=== PATIENT | female | born 1995 | race African-American/Black ===

== ENCOUNTER 2017-07-29 04:06 | Inpatient (IN) | payer OTHER ==
[2017-07-29 04:40] VITALS: BMI 23.8
[2017-07-29] MEDS: Lactated Ringer's 1,000 ML IV SCH ×3 (05:00→21:30)
[2017-07-29] MEDS ORDERED: Fentanyl 4 mcg/Marc 0.1% Cadd 100 ML ONE (05:12)
[2017-07-29 05:24] LABS: Hematocrit 37.2 % (36.0-47.0); Mean Platelet Volume 8.2 fL (7.4-10.4); Red Blood Cell (RBC) Count 3.81 mill/uL (4.00-5.20)
[2017-07-29] MEDS ORDERED: LR / Pitocin 40 units/1000 ml 1,000 ML IV PRN (06:06)
[2017-07-29] MEDS ORDERED: Ondansetron HCl/PF 4 MG/2 ML Vial IVP PRN ×2 (06:06→06:08)
[2017-07-29] MEDS ORDERED: Ibuprofen 800 MG TAB PO PRN (06:06)
[2017-07-29] MEDS ORDERED: Lidocaine 1% (PF) 30 ML VIAL SC PRN (06:06)
[2017-07-29] MEDS ORDERED: Acetaminophen 500 MG TAB PO PRN (06:06)
[2017-07-29] MEDS ORDERED: Promethazine HCl 25 MG/ML VIAL IM PRN ×2 (06:06→06:08)
[2017-07-29] MEDS ORDERED: Lactated Ringer's 500 ML IV PRN (06:08)
[2017-07-29] MEDS ORDERED: diphenhydrAMINE 50 MG/ML VIAL IVP PRN (06:08)
[2017-07-29] MEDS ORDERED: Eucerin (Mineral Oil/Petrolatum,White) 30 gm Jar TOP PRN (06:08)
[2017-07-29] MEDS ORDERED: ePHEDrine/0.9% NaCl/PF SYRINGE 50 mg/10 ml SLOW IVP PRN (06:08)
[2017-07-29] MEDS ORDERED: Naloxone HCl 0.4 mg/ml Vial IVP PRN ×2 (06:08)
[2017-07-29] MEDS ORDERED: Acetaminophen 325 MG TAB PO PRN ×2 (06:08→07:35)
--- NOTE | 2017-07-29 06:11 | PDOC.LDHP ---
Labor and Delivery H&P Chief complaint: contractions, abdominal pain HPI: 22 yo @ 37.2 by LMP and first tri US presents for painful contractions which started at approximately 0100 this am. Denies loss of fluid. Denies headache, vision changes, cp, sob, abdominal pain outside of contractions and denies increased swelling outside baseline. Current gestational age (weeks): 37 Due date: 08/17/17 Dating criteria: last menstrual period, first trimester ultrasound Grav: 2 Para: 1 OB History Details: Anemia of Current complications: other (anemia of ) Abnormal US findings: No Current medications: pre-danis vitamins, iron Previous surgical history: none Social history: none - Physical Exam Vital signs reviewed and normal: yes General: NAD, breathing through contractions Heart: RRR Lungs: nonlabored breathing Abdomen: NTTP Extremeties: no edema FHT: category 1, variability present [place] contractions every: 2-3min - Vaginal Exam cm dilated: 6 Effacement: 90% Station: -1 - OB Labs Blood type: O RH: positive Antibody Screen: negative HIV: negative RPR: negative HEPSAg: negative 1 hour GCT: unknown 3 hour GTT: unknown GBS: negative Rubella: immune - Assessment L&D Assessment: term patient in labor - Plan Plan: admit to L&D, anesthesia consult for pain management -: Note for pt exam @ 0500 TIUP in active labor, admit to L&D cat 1 strip BL 140s, + accels, no decels, contractions q2-3min pt reports painful contractions and is requesting epidural, anesthesia consulted 6, 90%, -1 last check per nurse continue cervical checks q2hr npo w/ ice chips LR @ 125mLs/hr consider AROM if no SROM by next check presentation vertex, post placenta by us <Clayton Alonzo - Last Filed: 07/29/17 06:09> <Keely Frost - Last Filed: 07/29/17 06:50> Allergies/Adverse Reactions: Allergies Allergy/AdvReac Type Severity Reaction Status Date / Time No Known Allergies Allergy Unverified 07/29/17 04:34 Attending Addendum - Attending Addendum I personally evaluated the patient and discussed the management with Dr. Alonzo I agree with the History, Examination, Assessment and Plan documented above with any addition or exceptions noted below. 22 yo female at 37.2 wks by LMP/16.0 wk sono here for active labor. 1. sIUP: IOB labs reviewed. Anatomy reviewed. 3T negative. Flu/Tdap given. GBS negative. Would like epidural for pain control. Vertex. Anterior placenta by anatomy sono. 2. Iron def anemia: Has been on iron supplementation. H/H WNL. Proceed with expectant management. Epidural upon request. Augment if needed. [place] <Keely Frost - Last Filed: 07/29/17 06:50>
[2017-07-29] MEDS ORDERED: Fentanyl 4mcg/Marcaine 0.1% Cassette 100 ML EPIDURAL SCH (06:15)
[2017-07-29] MEDS ORDERED: Communication Order-Pharmacy FS SCH (06:15)
--- NOTE | 2017-07-29 06:41 | PDOC.LDPN ---
Labor & Delivery Progress Note - Subjective Subjective: comfortable, no concerns - Objective Vital signs reviewed and normal: yes General: NAD, breathing through contractions Uterine fundus: non tender Dilation: 9 Effacement: 90% Station: 0 FHT: category 1, early decelerations, variability present [place] contractions every: 2-3min - Assessment (1) Term Code(s): Z34.80 - ENCOUNTER FOR SUPRVSN OF NORMAL , UNSP TRIMESTER Current Visit: Yes Status: Acute Plan: continue plan of care -: epidural in place, significant change since last cervical check membranes still intact, will AROM continue plan of care <Clayton Alonzo - Last Filed: 07/29/17 06:39> Attending Addendum - Attending Addendum I personally evaluated the patient and discussed the management with Dr. Alozno I agree with the History, Examination, Assessment and Plan documented above with any addition or exceptions noted below. 22 yo female at 37.2 wks by LMP/16.0 wk sono here for active labor. 1. sIUP: IOB labs reviewed. Anatomy reviewed. 3T negative. Flu/Tdap given. GBS negative. Now has epidural for pain control. Vertex. Anterior placenta by anatomy sono. FHT cat 1. Now 9 cm. Discussed AROM with patient. R/B/A discussed. Will proceed with AROM. 2. Iron def anemia: Has been on iron supplementation. H/H WNL. Proceed with expectant management. Epidural inplace. AROM clear. ABrayMD <Keely Frost - Last Filed: 07/29/17 06:58>
[2017-07-29] MEDS ORDERED: Bisacodyl 10 MG SUPP PR PRN (07:31)
[2017-07-29] MEDS ORDERED: Lanolin Ointment 7 GM TUBE TOP PRN (07:31)
[2017-07-29] MEDS ORDERED: Adacel (T-DAP) 0.5 ML VIAL IM ONE (07:31)
--- NOTE | 2017-07-29 07:40 | PDOC.OPDEL ---
OB Operative/Delivery Note Delivery Dr/Surgeon: Clinton Attending:Santosh Assist: Renetta Pre-Delivery Diagnosis: active labor Procedure/Post Delivery Dx: spontaneous vaginal delivery Weeks gestation: 37 Anesthesia: epidural - Findings A Sex: female - 1 min: 9 - 5 min: 9 - Additional Findings/Plan Placenta delivered: spontaneous Repaired Obstetrical Laceration: none Estimated blood loss: 200 Compilations/Other Findings: @ 0717 apgars 9,9. EBL 200, Placenta via pelayo. 3 vessel cord. Placenta intact. Small peineal skid, hemostatic. Post delivery plan: routine recovery <Clayton Alonzo - Last Filed: 07/29/17 07:38> Attending Addendum - Attending Addendum I was present for the delivery and participated. 22 yo now female s/p on 07/29/17 at 0717. Female delivered in OA position over an intact perineum. No nuchal. APGARs 9/9. No lacerations. Pitocin started for active management of 3rd stage. Infant straight to skin to skin. Delayed cord clamping. EBL 200 mL. Placenta delivered spontaneously, intact. Discarded. No complications. Routine pp and nursery. ABrayMD <Keely Frost - Last Filed: 07/29/17 10:13>
[2017-07-29] MEDS ORDERED: LR / Pitocin 40 units/1000 ml 1,000 ML IV SCH (07:45)
[2017-07-29] MEDS ORDERED: Ferrous Sulfate 325 MG TAB PO SCH (08:00)
[2017-07-29] MEDS ORDERED: Docusate 100 MG CAP PO SCH (09:00)
[2017-07-29] MEDS: Ascorbic Acid 500 mg Chewable Tablet PO SCH ×2 (10:49→19:06)
[2017-07-29] MEDS: Prenatal Vitamin 1 TAB PO SCH (10:49)
[2017-07-29] MEDS: Docusate 100 MG CAP PO PRN (10:50)
[2017-07-29] MEDS ORDERED: Bupivacaine 0.25% HCL 30 ML VIAL ONE (11:26)
[2017-07-29] MEDS: Ibuprofen 800 MG TAB PO SCH ×2 (12:04→21:30)
[2017-07-29] MEDS ORDERED: traMADol HCl 50 MG TAB PO PRN (16:12)
[2017-07-30] MEDS: Ibuprofen 800 MG TAB PO SCH ×2 (05:51→13:24)
[2017-07-30 07:57] VITALS: BP 99/56; TEMP 98.7
[2017-07-30] MEDS: Lactated Ringer's 1,000 ML IV SCH ×2 (08:22→13:24)
[2017-07-30] MEDS: Prenatal Vitamin 1 TAB PO SCH (08:28)
[2017-07-30] MEDS: Docusate 100 MG CAP PO PRN (08:28)
[2017-07-30] MEDS: Ascorbic Acid 500 mg Chewable Tablet PO SCH (13:24)
--- NOTE | 2017-07-30 13:53 | PDOC.PP ---
Post Progress Note Post Day #: 1 Subjective: Feeling well. Ambulating, eating/drinking normally and no concerns. Plans to have infant follow up at [facility]. PO intake tolerated: yes Flatus: yes Ambulation: yes Vital Signs (12 hours) Temp Pulse Resp BP Pulse Ox 07/30/17 07:57 98.7 F 79 18 99/56 L 98 07/30/17 07:30 98.7 F 79 18 07/30/17 05:11 98.5 F 70 18 129/65 07/30/17 04:00 96.8 F L 77 18 Weight Weight 58.967 kg - Physical Examination General: NAD Cardiovascular: no m/r/g, RRR Respiratory: clear to auscultation bilaterally, non-labored breathing Abdominal: + bowel sounds, lochia (minimal lochia rubra), no distention, appropriately TTP Fundus firm & at: below umbilicus Extremities: negative homans (B) Skin: no rash Neurological: no gross focal deficits Psychiatric: A&Ox3, normal affect Result Diagrams: 07/29/17 05:00 Additional Labs: Post Labs Blood Type O POSITIVE 07/29/17 05:00 Hep Bs Antigen Non-Reactive S/CO (NonReactive) 07/29/17 05:00 (1) Vaginal delivery Code(s): O80 - ENCOUNTER FOR FULL-TERM UNCOMPLICATED DELIVERY Status: Acute Comment: PPD#1 of 22yo -> s/p on 07/29/17 at 37.2wks. course as anticipated. No complications. Doing well currently without concerns. F/U with Dr. Jackson at [facility] within 2 wks of discharge. (2) Second degree perineal laceration during delivery, delivered Code(s): O70.1 - SECOND DEGREE PERINEAL LACERATION DURING DELIVERY Status: Acute Comment: well healed. no problems voiding or stooling. <Lo Guadalupe - Last Filed: 07/30/17 13:50> Vital Signs (12 hours) Temp Pulse Resp BP Pulse Ox 07/30/17 07:57 98.7 F 79 18 99/56 L 98 07/30/17 07:30 98.7 F 79 18 07/30/17 05:11 98.5 F 70 18 129/65 Weight Weight 58.967 kg Result Diagrams: 07/29/17 05:00 Additional Labs: Post Labs Blood Type O POSITIVE 07/29/17 05:00 Hep Bs Antigen Non-Reactive S/CO (NonReactive) 07/29/17 05:00 <Keely Frost - Last Filed: 07/30/17 16:22> Attending Addendum - Attending Addendum I personally evaluated the patient and discussed the management with Dr. Guadalupe I agree with the History, Examination, Assessment and Plan documented above with any addition or exceptions noted below. 22 yo female s/p . PPD#1. Doing well. No complications. Ambulating well. Voiding well. Lochia mild. Bottle feeding. Correction: NO 2nd DEGREE LACERATION! Contraception: Unsure at this time. will discuss with Dr. Jackson. Dispo: Ok for d/c to home today. ABrayMD <Keely Frost - Last Filed: 07/30/17 16:22>
== END 2017-07-30 15:24 | disposition home or self-care (01) | DRG 775 ==
LOC: L&D/OP 04:06 → L&D 05:29 → 3SW 09:54
PROVIDERS: ADMIT Student in an Organized Health Care Education/Training Program; ATTEND Student in an Organized Health Care Education/Training Program
PROC: 10E0XZZ Delivery of Products of Conception, External Approach (ICD-10-PCS; principal; 2017-07-29)
PROC: 10907ZC Drainage of Amniotic Fluid, Therapeutic from Products of Conception, Via Natural or Artificial Opening (ICD-10-PCS; 2017-07-29)
DX: O99.02 Anemia complicating childbirth (principal); D50.9 Iron deficiency anemia, unspecified; Z3A.37 37 weeks gestation of pregnancy; Z37.0 Single live birth
CPT/HCPCS: 85027; 86780; 87340; 87389; 90715; J2001; S0020

== ENCOUNTER 2018-03-29 12:00 | Emergency (ER) | payer OTHER, SELFPAY ==
[2018-03-29] MEDS ORDERED: Bicillin LA 2.4 MILL.UNITS/4 ML SYRINGE ONE (13:41)
[2018-03-29] MEDS ORDERED: Dexamethasone 4 mg/ml Vial ONE (13:42)
== END 2018-03-29 14:14 | disposition home or self-care (01) ==
LOC: ERS 12:00
DX: J02.0 Streptococcal pharyngitis (principal)
CPT/HCPCS: 87430; 96372; J0561; J1100

== ENCOUNTER 2018-10-03 23:22 | Emergency (ER) | payer OTHER, SELFPAY ==
[2018-10-03 23:56] LABS: Bilirubin Negative (Negative); Blood, Urine Large (Negative); Clarity TURBID (Clear); Glucose, Urine (Dipstick) Negative (Negative); Leukocyte Large (Negative); Nitrite Negative (Negative); Protein, Urine (Dipstick) 100 mg/dL (Neg-Trace); Specific Gravity, Urine 1.025 (1.002-1.036)
[2018-10-03 23:59] LABS: Bacteria/HPF 4+ HPF (None Seen); Hyaline Casts/LPF 7-10 HYALINE CAST LPF (0-3 Hyaline); Pathc Cast-AUWi Flag 2.19 (0-2.49); RBC/HPF GREATER THAN 50-TNTC HPF (0-3); Squamous Epithelial 0-3 HPF (0-3)
[2018-10-03 23:59] LABS: #Basophils 0.1 thou/uL (0.0-0.2); #Lymphocytes 1.8 thou/uL (1.20-3.40); #Monocytes 0.7 thou/uL (0.11-0.59); #Neutrophils 6.9 thou/uL (1.40-6.50); %Basophils 0.6 % (0.0-1.0); %Eosinophils 0.3 % (0.0-10.0); %Monocytes 7.4 % (0.0-10.0); %Neutrophils 72.8 % (42.0-75.0); Hemoglobin 13.6 g/dL (12.0-16.0); Mean Corpuscular HGB CONC 35.2 g/dL (32.0-36.0); Mean Corpuscular Hemoglobin 32.4 pg (27.0-31.0); Mean Corpuscular Volume 92.1 fL (78.0-98.0); Mean Platelet Volume 7.7 fL (7.4-10.4); Platelet Count 241 thou/uL (130-400); RBC Distribution Width 11.1 % (11.5-14.5); Red Blood Cell (RBC) Count 4.21 mill/uL (4.20-5.40); White Blood Cell (WBC) Count 9.4 thou/uL (4.8-10.8)
[2018-10-04 00:20] LABS: ALT (SGPT) 14 U/L (8-55); AST (SGOT) 17 U/L (5-34); Albumin 4.3 g/dL (3.5-5.0); Alkaline Phosphatase 50 U/L (40-150); Anion Gap 13 mmol/L (10-20); BUN (Urea Nitrogen) 9 mg/dL (7.0-18.7); Bilirubin, Total 0.3 mg/dL (0.2-1.2); Calc. Creatinine Clearance 0 mL/min (70-130); Calcium 9.5 mg/dL (7.8-10.44); Carbon Dioxide 21 mmol/L (22-29); Chloride 106 mmol/L (98-107); Estimated GFR-MDRD Greater than 90; Globulin 3.4 g/dL (2.4-3.5); Glucose 86 mg/dL (70-105); Potassium 3.4 mmol/L (3.5-5.1); Protein, Total 7.7 g/dL (6.0-8.3); Sodium 137 mmol/L (136-145)
== END 2018-10-04 00:15 | disposition home or self-care (01) ==
LOC: ERS 23:22
DX: O23.41 Unspecified infection of urinary tract in pregnancy, first trimester (principal); Z3A.10 10 weeks gestation of pregnancy
CPT/HCPCS: 36415; 80053; 81003; 81015; 84702; 85025; 86900; 86901; 87077; 87086; 87186; 99283

== ENCOUNTER 2019-04-17 05:15 | Inpatient (IN) | payer OTHER ==
[2019-04-17] MEDS ORDERED: NS / Oxytocin 40 units/1000ml 1,000 ML ONE (05:30)
[2019-04-17] MEDS ORDERED: Lidocaine 1% (PF) 30 ML VIAL ONE (05:30)
[2019-04-17] MEDS ORDERED: Promethazine HCl 25 MG/ML VIAL IM PRN (05:33)
[2019-04-17] MEDS ORDERED: Ibuprofen 800 MG TAB PO PRN (05:33)
[2019-04-17] MEDS ORDERED: Lidocaine 1% (PF) 30 ML VIAL SC PRN (05:33)
[2019-04-17] MEDS ORDERED: hydrALAZINE 20 MG/ML VIAL SLOW IVP PRN ×2 (05:33→06:15)
[2019-04-17] MEDS ORDERED: NS / Oxytocin 40 units/1000ml 1,000 ML IV PRN (05:33)
[2019-04-17] MEDS ORDERED: Ondansetron PF 4 MG/2 ML Vial IVP PRN ×2 (05:33→06:15)
--- NOTE | 2019-04-17 05:34 | PDOC.FPROB ---
FMR OB H&P: HPI - History of Present Illness Chief Complaint: contractions Indentification: 23-yo at 38.4 wga by LMP c/w 7.3 wk sono History of Present Illness: Patient arrived at 7-8 cm. She has been stephani. Yesterday she was checked in clinic and had membranes stripped. She reports stephani for past 35 min prior to arrival every 2 min. No LOF. No VB. +FM. She has history of poor maternal weight gain: 5 lb total during . She had much N/V in 1st trimester but this improved. Primary Care Physician: Dr. Guzmán FMR OB H&P: Current - Care : 3 Para: 2 Gestational age: 38.4 Due date: 04/27/19 Dating Criteria: LMP c/w 7.3 wk sono Total weight gain: 5 lbs. Course/Complications: Poor maternal weight gain 2/2 N/V - OB Labs Blood type: O RH: positive Antibody Screen: negative HIV: negative RPR: negative HepBsAg: negative Rubella: immune Quad screen: negative Urine drug screen: not done Gonorrhea: negative Chlamydia: negative Pap Smear: NILM 1 hour gtt: 132 A1c: 4.6 GBS: negative H&H: 10.9 - First Trimester Ultrasound First trimester: 7.3 week sono - Anatomy Survey Anatomy survey: No abnormalities FMR OB H&P: History - Past Medical History PMH: Poor maternal weight gain 2/2 N/V this - OB History OB History: 2 term . 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 - Social History Social History: Denies tobacco, alcohol, drug use. - Family History Family History: [place] FMR OB H&P: Medications - Current Home Medications: Medication Instructions Recorded Confirmed Type 25/Iron/Folate 6/Dha 1 cap PO DAILY 07/14/15 07/29/17 History [Vitamedmd One Rx Softgel] Allergies/Adverse Reactions: Allergies Allergy/AdvReac Type Severity Reaction Status Date / Time No Known Allergies Allergy Verified 04/17/19 06:13 FMR OB H&P: ROS - Review of Systems General: reports: other (unable to obtain due to imminent delivery) FMR OB H&P: Vital Signs - Maternal Vital signs: Stable. - Heart Tones Category: category 1 FMR OB H&P: Physical Exam - Physical Exam General: NAD, other (in labor, stephani.) FMR OB H&P: A/P - Problem List (1) Imminent delivery Current Visit: Yes Status: Acute (2) Nausea and vomiting during Current Visit: Yes Status: Acute Code(s): O21.9 - VOMITING OF , UNSPECIFIED (3) weight loss Current Visit: Yes Status: Acute (4) Term Current Visit: No Status: Acute Code(s): Z34.80 - ENCOUNTER FOR SUPRVSN OF NORMAL , UNSP TRIMESTER Disposition: 23 presents in active labor: 1. Term - Prepare for delivery 2. Imminent delivery 3. Nausea/vomiting in 4. Poor maternal weight gain Discussion: Date/Time: 04/17/19 2243 This H&P was discussed with Dr. Masterson and Dr. Guzmán who agree with the above documentation and plan. Signature: Jessica Menchaca MD PGY-1 Addendum - Attending - Attending Attestation Date/Time: 04/17/19 2725 I personally evaluated the patient and discussed the management with Dr. Menchaca. I agree with the History, Examination, Assessment and Plan documented above with any addition or exceptions noted below. ROS otherwise negative except as listed in HPI. PE: NAD, laying with daughter s/p precipitous delivery NCAT, pupils equal, no conj injection, patent nares, normal pinna, MMM RRR, no edema No wheezes or inc wob Uterus firm and below umbilicus, appropriately TTP Perineum with hemostatic and well approximated 1st degree and normal pp bleeding Ext wwp s cyanosis or edema Motor 5/5 throughout, SILT Mood and affect appropriate for current medical condition, AOx3 GBS neg. s/p precipitious delivery to viable female . See delivery note.
[2019-04-17 05:44] LABS: Hemoglobin 11.8 g/dL (12.0-16.0); Mean Corpuscular Hemoglobin 30.6 pg (27.0-31.0); Mean Corpuscular Volume 92.6 fL (78.0-98.0); Mean Platelet Volume 7.8 fL (7.4-10.4); Platelet Count 175 thou/uL (130-400); RBC Distribution Width 11.7 % (11.5-14.5); Red Blood Cell (RBC) Count 3.85 mill/uL (4.20-5.40); White Blood Cell (WBC) Count 9.8 thou/uL (4.8-10.8)
[2019-04-17] MEDS ORDERED: Lactated Ringer's 1,000 ML IV SCH (05:45)
[2019-04-17 06:01] VITALS: BMI 25.2
[2019-04-17] MEDS ORDERED: Milk Of Magnesia 30 ML UDCUP PO PRN (06:15)
[2019-04-17] MEDS ORDERED: Lanolin Ointment 7 GM TUBE TOP PRN (06:15)
[2019-04-17] MEDS ORDERED: NS / Oxytocin 40 units/1000ml 1,000 ML IV SCH (06:15)
[2019-04-17] MEDS ORDERED: diphenhydrAMINE 25 MG CAP PO PRN (06:15)
[2019-04-17] MEDS ORDERED: Preparation H Ointment 28 GM TUBE PR PRN (06:15)
[2019-04-17] MEDS ORDERED: Benzocaine-Menthol 82.5 ML CAN TOP PRN (06:15)
[2019-04-17] MEDS ORDERED: Bisacodyl 10 MG SUPP PR PRN (06:15)
[2019-04-17] MEDS ORDERED: Acetaminophen/Codeine 30-300mg Tablet PO SCH (06:15)
--- NOTE | 2019-04-17 06:18 | PDOC.OPDEL ---
Addendum entered and electronically signed by Jessica Menchaca MD 04/17/19 06 :30: SROM within 1 minute of delivery. Clear fluid. Original Note: OB Operative/Delivery Note Delivery Dr/Surgeon: Dr. Menchaca, Dr. Reyes, Dr. Kurt Masterson Pre-Delivery Diagnosis: active labor Procedure/Post Delivery Dx: spontaneous vaginal delivery Weeks gestation: 38 (38.4) Anesthesia: none - Findings New Baby Sex: female - Additional Findings/Plan Placenta delivered: spontaneous Repaired Obstetrical Laceration: 1st degree Compilations/Other Findings: Vaginal Delivery Operative Report Delivering Physician: Dr. Eric Garcia Attending: Dr. Kurt Masterson Procedure: Spontaneous Vaginal Delivery Anesthesia: none EBL: 100 ml Pre-op Diagnosis: 1. Term intrauterine in labor 2. Poor maternal weight gain 2/2 Nausea/vomiting Post-op Diagnosis: 1. Term intrauterine , delivered 2. same as above Indications: A 23 y/o female presents in active labor. Delivery Note: This is 23 yo F @ 38.4 wks who delivered a viable F at 0540 on 04/17/19. Following an uneventful antepartum course, a vigorous female was delivered imminently in the bed over a 1st degree lacerated perineum in the occipitoanterior position. Anterior Shoulder and then remainder of the body delivered. No nuchal cord. The head was held down and mouth and nares were bulb suctioned. Cord clamped after delayed cord clamping and cut and cord blood collected. Placenta delivered intact in the [place] presentation with a 3 vessel cord noted. Fundal massage was performed gently and the fundus was firm. The cervix and vagina were inspected and found to be free of lacerations. 1st degree perineal lac was hemostatic; no repair needed. went to mom for [id number]. Apgars were 9/9 at 1 & 5 minutes, respectively. Patient tolerated delivery well and went to after routine recovery/ care. Post delivery plan: routine recovery Addendum - Attending - Attending Attestation Date/Time: 04/17/19 0902 I was present for the entire delivery.
[2019-04-17 06:23] LABS: Syphilis Antibody Nonreactive (Nonreactive); Syphilis Antibody Index 0.06 S/CO (<1.00 Non-Reactive)
[2019-04-17 06:24] LABS: HBSAg Index 0.34 S/CO (0-0.99); Hep B Surf Ag Non-Reactive S/CO (NonReactive)
[2019-04-17] MEDS: Ibuprofen 800 MG TAB PO SCH ×3 (08:14→22:03)
[2019-04-17] MEDS: Ferrous Sulfate 325 MG TAB PO SCH ×2 (11:07→16:49)
[2019-04-17] MEDS: Docusate Calcium (SURFAK) 240 MG CAP PO SCH ×2 (11:22→22:03)
[2019-04-17] MEDS: Prenatal Vitamin 1 TAB PO SCH (11:22)
[2019-04-17] MEDS ORDERED: Sodium Chloride 0.9% 10 ML ONE (14:22)
[2019-04-18] MEDS: Ibuprofen 800 MG TAB PO SCH ×2 (05:38→13:25)
--- NOTE | 2019-04-18 06:57 | PDOC.PP ---
Post Progress Note Post Day #: 1 Subjective: Doing well. Minimal lochia. No abd pain. No concerns, read to go home PO intake tolerated: yes Flatus: yes Ambulation: yes Vital Signs (12 hours) Temp Pulse Resp BP Pulse Ox 04/18/19 03:47 98.6 F 66 16 102/51 L 98 04/18/19 00:38 97.9 F 59 L 18 103/58 L 98 04/17/19 22:03 98.3 F 61 18 103/59 L 98 Weight Weight 62.596 kg - Physical Examination General: NAD Cardiovascular: RRR Respiratory: non-labored breathing Abdominal: + bowel sounds, lochia, no distention Psychiatric: A&Ox3, normal affect Result Diagrams: 04/17/19 05:37 Additional Labs: Post Labs Blood Type O POSITIVE 04/17/19 05:37 Hep Bs Antigen Non-Reactive S/CO (NonReactive) 04/17/19 05:37 - Assessment/Plan Term , day 1 -no concerns at this time, mom doing well -discharge today pending baby bilirubin -plan for nexplanon placement for contraception d/c today f/u in 2 weeks Addendum - Attending - Attending Attestation Date/Time: 04/18/19 2321 I personally evaluated the patient and discussed the management with Dr. Guzmán. I agree with the History, Examination, Assessment and Plan documented above with any addition or exceptions noted below. Afeb. Lochia normal. Fundus firm. Stable for d/c if released.
[2019-04-18] MEDS: Ferrous Sulfate 325 MG TAB PO SCH (09:00)
[2019-04-18] MEDS ORDERED: Adacel (T-DAP) 0.5 ML SYRINGE IM ONE (09:00)
[2019-04-18] MEDS: Docusate Calcium (SURFAK) 240 MG CAP PO SCH (09:10)
[2019-04-18] MEDS: Prenatal Vitamin 1 TAB PO SCH (09:10)
[2019-04-18 11:41] VITALS: BP 127/72; TEMP 98.5
== END 2019-04-18 15:43 | disposition home or self-care (01) | DRG 807 ==
LOC: L&D/OP 05:15 → L&D 05:38 → 3SE 09:18
PROVIDERS: ADMIT Emergency Medicine; ATTEND Emergency Medicine
PROC: 10E0XZZ Delivery of Products of Conception, External Approach (ICD-10-PCS; principal; 2019-04-17)
PROC: 0HQ9XZZ Repair Perineum Skin, External Approach (ICD-10-PCS; 2019-04-17)
DX: O75.89 Other specified complications of labor and delivery (principal); Z37.0 Single live birth; R63.4 Abnormal weight loss; O70.0 First degree perineal laceration during delivery; Z3A.38 38 weeks gestation of pregnancy
CPT/HCPCS: 36415; 85027; 86780; 86850; 86900; 86901; 87340; 99285; J2001

== ENCOUNTER 2019-04-23 08:06 | Emergency (ER) | payer OTHER | END 2019-04-23 08:35 | disposition home or self-care (01) | LOC: ERS 08:06 | DX: L05.91 Pilonidal cyst without abscess (principal) | CPT/HCPCS: 99283 ==

== ENCOUNTER 2019-04-25 05:41 | Emergency (ER) | payer OTHER ==
[2019-04-25] MEDS ORDERED: Lidocaine 1% w/Epinephrine 1:100K 20 ML VIAL ONE (06:11)
== END 2019-04-25 06:37 | disposition home or self-care (01) ==
LOC: ERS 05:41
DX: L02.31 Cutaneous abscess of buttock (principal); Z79.891 Long term (current) use of opiate analgesic; Z79.1 Long term (current) use of non-steroidal anti-inflammatories (NSAID)
CPT/HCPCS: 10060; J2001

== ENCOUNTER 2020-06-30 04:05 | Inpatient (IN) | payer OTHER ==
[2020-06-30] MEDS ORDERED: Lidocaine 1% (PF) 30 ML VIAL SC PRN (04:38)
[2020-06-30] MEDS ORDERED: hydrALAZINE 20 MG/ML VIAL SLOW IVP PRN ×2 (04:38→07:45)
[2020-06-30] MEDS ORDERED: Butorphanol Tartrate 1 MG/ML VIAL SLOW IVP PRN (04:38)
--- NOTE | 2020-06-30 04:38 | PDOC.FPROB ---
FMR OB H&P: HPI - History of Present Illness Chief Complaint: contractions History of Present Illness: 24yo @ 37.4wks by 15.6wk eli presents with contractions. She says she felt more vaginal pressure yesterday and last night around midnight she started to have contractions. They started to increase in intensity and frequency, occurring every 2 minutes. When she got to the hospital and got into the bed, she ruptured. +FM. Denies VB. 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 - Surgical History Sx History: none - Social History Social History: no T/A/D - Family History Family History: none FMR OB H&P: Medications - Current Home Medications: Medication Instructions Recorded Confirmed Type 25/Iron/Folate 6/Dha 1 cap PO DAILY 07/14/15 04/18/19 History [Vitamedmd One Rx Softgel] Allergies/Adverse Reactions: Allergies Allergy/AdvReac Type Severity Reaction Status Date / Time No Known Allergies Allergy Verified 06/30/20 04:53 FMR OB H&P: ROS - Review of Systems General: denies: fever/chills, weight/appetite/sleep changes Eyes: denies: vision changes, scotomas ENT: denies: nasal congestion, rhinorrhea Cardiovascular: denies: chest pain, palpitation, edema Respiratory: denies: cough, congestion Gastrointestinal: reports: abdominal pain. denies: nausea, vomiting, diarrhea Genitourinary (Female): reports: contractions, vaginal pressure. denies: vaginal discharge, vaginal bleeding Musculoskeletal: denies: pain, tenderness Neurologic: denies: syncope, headache Integumentary: denies: itching, rash Endocrine: denies: polydipsia, polyuria Hematologic/Lymphatic: denies: prolonged or excessive bleeding FMR OB H&P: Vital Signs - Heart Tones Baseline: 140 Variability: moderate Acceleration: present Deceleration: absent Category: category 1 FMR OB H&P: Physical Exam - Physical Exam General: NAD, awake, alert and oriented HEENT: normocephalic and atraumatic, grossly normal vision, grossly normal hearing Neck: supple, FROM Heart: RRR, normal S1/S2, no edema General: CTAB, no respiratory distress Abdomen: soft, gravid Musculoskeletal: normal gait and station, no atrophy Neurological: no focal deficit Skin: no rash, no jaundice Lymphatic: no unusual bruising or bleeding Psychiatric: intact recent and remote memory, normal mood and affect - Pelvic Exam Vulva: normal hair distribution, no blood SVE: /-1 FMR OB H&P: A/P Discussion: Date/Time: 06/30/20 0438 #sIUP -in active labor, expectant management of deliver, does not desire epidural -SVE: /-1 -FHT: cat 1 140/mod eren/+accel, no decel -ctx q2-4min #hx of chlamydia -s/p treatment, TAZ negative This H&P was discussed with Dr. Vera and Dr. Dash who agree with the above documentation and plan.
[2020-06-30] MEDS ORDERED: Lactated Ringer's 1,000 ML IV SCH (04:45)
[2020-06-30 04:52] VITALS: BMI 26.3
[2020-06-30 05:12] LABS: Hemoglobin 12.7 g/dL (12.0-16.0); Mean Corpuscular HGB CONC 33.3 g/dL (32.0-36.0); Mean Corpuscular Volume 95.9 fL (78.0-98.0); Mean Platelet Volume 8.4 fL (7.4-10.4); Platelet Count 161 thou/uL (130-400); Red Blood Cell (RBC) Count 3.96 mill/uL (4.20-5.40); White Blood Cell (WBC) Count 6.6 thou/uL (4.8-10.8)
[2020-06-30 05:44] LABS: Syphilis Antibody Nonreactive (Nonreactive); Syphilis Antibody Index 0.06 S/CO (<1.00 Non-Reactive)
[2020-06-30 05:45] LABS: HBSAg Index 0.25 S/CO (0-0.99); Hep B Surf Ag Non-Reactive S/CO (NonReactive)
[2020-06-30] MEDS: NS / Oxytocin 40 units/1000ml 1,000 ML IV PRN ×2 (07:01→07:42)
[2020-06-30] MEDS ORDERED: NS / Oxytocin 40 units/1000ml 1,000 ML IV SCH (07:45)
[2020-06-30] MEDS ORDERED: Ondansetron PF 4 MG/2 ML Vial IVP PRN (07:45)
[2020-06-30] MEDS ORDERED: Milk Of Magnesia 30 ML UDCUP PO PRN ×2 (07:45→10:14)
[2020-06-30] MEDS ORDERED: Bisacodyl 10 MG SUPP PR PRN ×2 (07:45→10:14)
[2020-06-30] MEDS ORDERED: Preparation H Ointment 28 GM TUBE PR PRN (07:45)
[2020-06-30] MEDS ORDERED: Adacel (T-DAP) 0.5 ML SYRINGE IM ONE (07:45)
--- NOTE | 2020-06-30 07:56 | PDOC.OPDEL ---
OB Operative/Delivery Note Delivery Dr/Surgeon: Dr. Freya Lee Assist: Dr. Dash attending Pre-Delivery Diagnosis: active labor Procedure/Post Delivery Dx: spontaneous vaginal delivery Weeks gestation: 37 (37.4) Anesthesia: local - Additional Findings/Plan Placenta delivered: spontaneous Repaired Obstetrical Laceration: none Estimated blood loss: 52 cc Compilations/Other Findings: Delivering Physician Dr. Freya Lee Attending: Dr. Dash Procedure: Spontaneous Vaginal Delivery Anesthesia: Local for Repair EBL: 52 ml Pre-op Diagnosis: 1. Term intrauterine in labor 2. Hx of labor Post-op Diagnosis: 1. Term intrauterine , delivered 2. same as above Indications: A 24y/o female presents in active labor Delivery Note: This is 24yo F @ 37.4 wks who delivered a viable M infant at 0707. Following an uneventful antepartum course, a vigorous M was delivered over an intact perineum in the occipitoanterior position. Anterior Shoulder and then remainder of the body delivered. Nuchal cord was reduced then baby was delivered. The head was held down and mouth and nares were bulb suctioned. Delayed cord clamping performed and cut and cord blood collected. Placenta delivered intact with a 3 vessel cord noted. Fundal massage was performed and the fundus was firm. The cervix and vagina were inspected and found to be free of lacerations. Infant went to nursery in good condition for routine care. Apgars were 8/9 at 1 & 5 minutes, respectively. Patient tolerated delivery well and went to after routine recovery/care. Post delivery plan: routine recovery
[2020-06-30] MEDS ORDERED: Ferrous Sulfate 325 MG TAB PO SCH ×3 (08:00→10:30)
[2020-06-30] MEDS: Ibuprofen 800 MG TAB PO SCH ×2 (08:06→16:49)
[2020-06-30] MEDS ORDERED: Docusate Calcium (SURFAK) 240 MG CAP PO SCH (09:00)
[2020-06-30] MEDS ORDERED: Benzocaine-Menthol 82.5 ML CAN TOP PRN (10:14)
[2020-06-30] MEDS ORDERED: Lanolin Ointment 7 GM TUBE TOP PRN (10:14)
[2020-06-30] MEDS: Docusate Calcium (SURFAK) 240 MG CAP PO SCH ×3 (12:58→19:33)
[2020-06-30] MEDS: Prenatal Vitamin 1 TAB PO SCH (12:59)
[2020-06-30 16:06] LABS: SARS-CoV-2 MS2 Positive; SARS-CoV-2 N Gene Negative; SARS-CoV-2 S Gene Negative; SARS-CoV-2 by NAA Not Detected (NotDetected); SARS-CoV-2 orf1ab Negative
[2020-06-30] MEDS: Ferrous Sulfate 325 MG TAB PO SCH (17:05)
[2020-06-30] MEDS ORDERED: HYDROcodone/Acetaminophen 5/325 mg Tablet PO SCH (19:15)
[2020-07-01] MEDS: Ibuprofen 800 MG TAB PO SCH ×3 (00:05→15:54)
--- NOTE | 2020-07-01 06:34 | PDOC.PP ---
Post Progress Note Post Day #: 1 Subjective: Doing well. Complaining of abdominal cramping. PO intake tolerated: yes Flatus: yes Ambulation: yes Vital Signs (12 hours) Temp Pulse Resp BP Pulse Ox 07/01/20 04:50 98.1 F 60 18 128/73 07/01/20 00:00 98.4 F 62 18 117/61 06/30/20 19:42 98.5 F 60 20 130/72 97 Weight Weight 65.317 kg - Physical Examination General: NAD Cardiovascular: no m/r/g, RRR Respiratory: clear to auscultation bilaterally, non-labored breathing Abdominal: + bowel sounds, lochia, no distention, appropriately TTP Fundus firm & at: below umbilicus Extremities: negative homans (B) Neurological: no gross focal deficits Psychiatric: A&Ox3, normal affect Result Diagrams: 06/30/20 04:56 Additional Labs: Post Labs Hep Bs Antigen Non-Reactive S/CO (NonReactive) 06/30/20 04:56 Blood Type O POSITIVE 06/30/20 04:56 (1) Term Code(s): Z34.80 - ENCOUNTER FOR SUPRVSN OF NORMAL , UNSP TRIMESTER Status: Acute (2) Vaginal delivery Code(s): O80 - ENCOUNTER FOR FULL-TERM UNCOMPLICATED DELIVERY Status: Acute Comment: PPD#1 of 22yo -> s/p on 07/29/17 at 37.2wks. course as anticipated. No complications. Doing well currently without concerns. F/U with Dr. Jackson at [facility] within 2 wks of discharge. - Assessment/Plan PPD #1, s/p 06/30/20 - Routine care - Ibuprofen for pain - PNV. - QBL 268mL - Does not want 24hr discharge. Will plan for d/c tomorrow. Cady BRYAN PGY2 Addendum - Attending - Attending Attestation Date/Time: 07/01/20 1114 I personally evaluated the patient and discussed the management with Dr. Pillai I agree with the History, Examination, Assessment and Plan documented above with any addition or exceptions noted below - Patient without complaints. Minimal lochia. Afebrile VSS A/P: 1) PPD#1 s/p - continue routine care.
[2020-07-01] MEDS: Ferrous Sulfate 325 MG TAB PO SCH ×2 (08:11→15:55)
[2020-07-01] MEDS: Prenatal Vitamin 1 TAB PO SCH (08:36)
[2020-07-01] MEDS: Docusate Calcium (SURFAK) 240 MG CAP PO SCH (21:40)
[2020-07-02] MEDS: Ibuprofen 800 MG TAB PO SCH ×2 (00:04→08:53)
[2020-07-02] MEDS: Ferrous Sulfate 325 MG TAB PO SCH (07:29)
--- NOTE | 2020-07-02 07:57 | PDOC.PP ---
Post Progress Note Post Day #: 2 Subjective: Doing well. c/o mild cramping, improved from yesterday. PO intake tolerated: yes Flatus: yes Ambulation: yes Weight Weight 65.317 kg - Physical Examination General: NAD Cardiovascular: no m/r/g, RRR Respiratory: clear to auscultation bilaterally, non-labored breathing Abdominal: + bowel sounds, lochia, no distention, appropriately TTP Extremities: negative homans (B) Neurological: no gross focal deficits Psychiatric: A&Ox3, normal affect Result Diagrams: 06/30/20 04:56 Additional Labs: Post Labs Hep Bs Antigen Non-Reactive S/CO (NonReactive) 06/30/20 04:56 Blood Type O POSITIVE 06/30/20 04:56 (1) Term Code(s): Z34.80 - ENCOUNTER FOR SUPRVSN OF NORMAL , UNSP TRIMESTER Status: Acute (2) Vaginal delivery Code(s): O80 - ENCOUNTER FOR FULL-TERM UNCOMPLICATED DELIVERY Status: Acute Comment: PPD#1 of 22yo -> s/p on 07/29/17 at 37.2wks. course as anticipated. No complications. Doing well currently without concerns. F/U with Dr. Jackson at [facility] within 2 wks of discharge. - Assessment/Plan PPD #1, s/p 06/30/20 - Routine care - Ibuprofen for pain - PNV. - QBL 268mL - D/c today w/ 2wk f/u @ [facility]. Cady BRYAN PGY2 Addendum - Attending - Attending Attestation Date/Time: 07/02/20 1126 I personally evaluated the patient and discussed the management with Dr. Morales I agree with the History, Examination, Assessment and Plan documented above with any addition or exceptions noted below- Patient without complaints. Ambulating and voiding. Afebrile VSS. A/P: 1) PPD#2 s/p - doing well. Plan to d/c home today. .
[2020-07-02 08:27] VITALS: BP 113/61; TEMP 98.1
[2020-07-02] MEDS: Prenatal Vitamin 1 TAB PO SCH (08:53)
[2020-07-02] MEDS: Docusate Calcium (SURFAK) 240 MG CAP PO SCH (08:53)
== END 2020-07-02 12:40 | disposition home or self-care (01) | DRG 807 ==
LOC: L&D/OP 04:05 → L&D 04:39 → 3SW 09:29
PROVIDERS: ADMIT Family Medicine; ATTEND Family Medicine
PROC: 10E0XZZ Delivery of Products of Conception, External Approach (ICD-10-PCS; principal; 2020-06-30)
DX: O69.81X0 Labor and delivery complicated by cord around neck, without compression, not applicable or unspecified (principal); Z37.0 Single live birth; Z3A.37 37 weeks gestation of pregnancy; Z20.828 Contact with and (suspected) exposure to other viral communicable diseases
CPT/HCPCS: 36415; 85027; 86780; 86850; 86900; 86901; 87340; 87635; 99285; J2001; U0003

== ENCOUNTER 2024-09-15 20:48 | Emergency (ER) | payer OTHER | END 2024-09-15 22:16 | disposition home or self-care (01) | LOC: ERS 20:48 | DX: S06.0X0A Concussion without loss of consciousness, initial encounter (principal); S60.221A Contusion of right hand, initial encounter; Y04.2XXA Assault by strike against or bumped into by another person, initial encounter | CPT/HCPCS: 99283 ==